=== PATIENT | female | born 1965 | race Caucasian/White ===

== ENCOUNTER 2023-01-18 11:53 | Emergency (ER) | payer BC, SELFPAY ==
[2023-01-18 12:02] VITALS: BP 140/82; PULSE 100; RESP 16; TEMP 37.5; O2SAT 98
--- NOTE | 2023-01-18 12:14 | ED.URI ---
HPI - URI/Sore Throat General Chief Complaint: Upper Respiratory Infection Stated Complaint: SORE THROAT Time Seen by Provider: 01/18/23 12:14 Source: patient, RN notes reviewed and old records reviewed Mode of arrival: ambulatory Limitations: no limitations History of Present Illness HPI Narrative: 57 year old [facility] complaints of sore throat since yesterday morning. Patient reports that she has had temperature around 100F, some headache, and body aches, no cough or sinus congestion. Patient reports that she has taken some Ibuprofen for her discomfort and fever, rates her throat pain as 9/10 with painful swallowing. 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 MD elicited complaint: sore throat Onset (ago): day(s) (1) Pain scale (0-10): 9 Able to tolerate fluids by mouth: Yes Exacerbating factors: swallowing Treatments prior to arrival: ibuprofen Related Data Home Medications Medication Instructions Recorded Confirmed multivitamin 1 tablet PO DAILY 05/11/21 01/18/23 Allergies Allergy/AdvReac Type Severity Reaction Status Date / Time IVP DYE CONTRAST Allergy Mild RED AND Uncoded 01/18/23 12:03 ITCHY Review of Systems Review of Systems: CONSTITUTIONAL: Reports malaise, chills, sweats, or fever. EYES: Denies visual changes, redness, or discharge. ENT: Reports no rhinorrhea, congestion,or sinus pain,no otalgia, positive sore throat. CARDIOVASCULAR: Denies chest pain, palpitations, or edema. RESPIRATORY: Reports no cough.? Denies dyspnea. GASTROINTESTINAL: Denies abdominal pain, nausea, vomiting, diarrhea SKIN: Denies rash or itching. MUSCULOSKELETAL: Reports myalgia. NEUROLOGIC: Reports headache. All systems reviewed & are unremarkable except as noted in HPI and below PMFSH Past Medical History Medical History Breast cancer Deep vein thrombosis (DVT) of right upper extremity Surgical History Surgical History History of bilateral mastectomy with abdominal flap History of breast implant Family History Family History Sibling Carcinoma of colon, Onset Age: 54 Father Hypertension Colon polyp Mother , age 69, ovarian cancer Hypertension Carcinoma of colon Ovarian cancer Sibling Meningioma, Onset Age: 49 Social History Social History Smoking status: Never smoker Alcohol intake: current Comments At time of signature, agree with nursing past medical, surgical, social and family history. There is no relevant family history pertinent to the presenting complaint Exam Narrative: GENERAL: Well-appearing, well-nourished, and in no acute distress. HEAD: Normocephalic EYES: PERRLA, conjunctivae clear ENT: Nares clear, turbinates edematous and erythematous, clear discharge. Mucous membranes moist. TM pearly butler with dull light reflex bilaterally; no tragal tenderness. Oropharynx erythematous without lesions. Tonsils red enlarged and without exudate, no drooling, no hoarseness, no trismus, uvula midline red with some swelling. NECK: Supple. lymphadenopathy CHEST: Clear to auscultation, breath sounds equal. No wheezing, rhonchi, rales, or stridor. No respiratory distress, speaks in full sentences.SAO2 98% on room air HEART: Regular rate and rhythm. No murmur heard. SKIN: Warm, dry, no rash. NEURO: Alert and oriented x3. PSYCH: Normal mood and affect Course Course Emergency Course: Patient is aware of diagnosis, understands and agrees to treatment plan.? Anticipatory guidance given.? Patient agrees to follow-up as directed and is aware of reasons to seek care at the emergency department. Portions of this record may have been created with voice recognition software Level of Care: Serfain Lee
== END 2023-01-18 12:40 | disposition home or self-care (01) ==
PROVIDERS: Emergency Provider Registered Nurse; PCP Family Medicine
DX: J02.0 Streptococcal pharyngitis (principal); Z85.3 Personal history of malignant neoplasm of breast; Z86.718 Personal history of other venous thrombosis and embolism
CPT/HCPCS: 87880; 99213; G0463

== ENCOUNTER 2023-11-04 00:22 | Day surgery (SDC) | payer BC, SELFPAY ==
[2023-10-23 09:21] VITALS: BMI 28.8
--- NOTE | 2023-11-01 09:22 | SUR.PREOP ---
Patient called regarding upcoming procedure. Message left on patient's voicemail regarding preop instructions, appointment times, and procedure prep.
--- NOTE | 2023-11-01 14:53 | PM.HPGS ---
History of Present Illness History of Present Illness Consent: Risks, benefits, and alternatives have been discussed and questions answered. Patient agrees to proceed with procedure. Chief complaint: fam hx of colon ca Narrative: Linda Jeronimo is a 57 year old female Referred for colon cancer screening. Her mother had colon cancer. Review of Systems Review of Systems: All systems reviewed & are unremarkable except as noted in HPI and below PMFSH Past Medical History Medical History Breast cancer Deep vein thrombosis (DVT) of right upper extremity Surgical History Surgical History History of bilateral mastectomy with abdominal flap History of breast implant Family History Family History Sibling Carcinoma of colon, Onset Age: 54 Father Hypertension Colon polyp Mother , age 69, ovarian cancer Hypertension Carcinoma of colon Ovarian cancer Sibling Meningioma, Onset Age: 49 Social History Social History Smoking status: Never smoker Alcohol intake: current Substance use type: does not use Lack of Transportation: YES Lack of Food: Sometimes True Current Housing: I Have Housing Concerned About Future Housing: No Difficulty Paying Gas/Electric Bills: No Difficulty Paying for Meds: No Currently Unemployed: No Education: Bachelor's Degree Difficulty w/ Childcare or Family Care: No Living arrangements: other Additional living arrangements comments: with sp Meds Home Medications and Allergies Home Medications Medication Instructions Recorded Confirmed Type multivitamin 1 tablet PO DAILY 05/11/21 11/04/23 History Allergies Allergy/AdvReac Type Severity Reaction Status Date / Time cyclobenzaprine Allergy Unknown Verified 11/04/23 09:44 [From Flexeril] IVP DYE CONTRAST Allergy Mild RED AND Uncoded 11/04/23 09:44 ITCHY Exam Const: General: alert Orientation/consciousness: patient oriented x3 Resp: Auscultation: clear to auscultation bilaterally Cardio: Rhythm: regular rhythm GI: GI Palp: Yes Soft to palpation and No Tenderness to palpation present (GI) Neuro: General: patient oriented x3 Assessment and Plan Assessment and plan (1) Family history of malignant neoplasm of digestive organs: Code(s): Z80.0 - Family history of malignant neoplasm of digestive organs Status: Acute Assessment and Plan: Colonoscopy with possible biopsy or polypectomy or cautery or injection of substances.
[2023-11-04 09:35] VITALS: BP 148/85; PULSE 75; RESP 18; TEMP 36.2; O2SAT 99; BMI 28.7
[2023-11-04] MEDS: LACTATED RINGERS 1,000 ML 150 ML IV CONT (09:52)
--- NOTE | 2023-11-04 10:34 | P.PNAN_ITS ---
Anes - Initial Pre Proc Eval Procedure: Operation Date: 11/04/23 11:00 Proposed Procedures p Colonoscopy - Constantin Couch MD Date/Time: 11/04/23 10:34 Surgeon: Constantin Couch MD Pre Op Diagnosis: fam hx of colon ca Patient Data Age: 57 Gender: F Height: 1.78 m Weight: 90.9 kg Last Vital Signs Temp 97.2 F L 11/04/23 09:35 Pulse 75 11/04/23 09:35 Resp 18 11/04/23 09:35 BP 148/85 H 11/04/23 09:35 Pulse Ox 99 11/04/23 09:35 O2 Del Method Room Air 11/04/23 09:35 Allergies Allergy/AdvReac Type Severity Reaction Status Date / Time cyclobenzaprine Allergy Unknown Verified 11/04/23 09:44 [From Flexeril] IVP DYE CONTRAST Allergy Mild RED AND Uncoded 11/04/23 09:44 ITCHY Home Medications Medication Instructions Recorded Confirmed Type multivitamin 1 tablet PO DAILY 05/11/21 11/04/23 History Patient hx anesthesia problems: none Family hx anesthesia problems: none Results Review: All pre-operative results and documents have been reviewed as part of the pre- operative evaluation. [facility] Past Medical History Medical History Breast cancer Deep vein thrombosis (DVT) of right upper extremity Surgical History Surgical History History of bilateral mastectomy with abdominal flap History of breast implant Family History Family History Sibling Carcinoma of colon, Onset Age: 54 Father Hypertension Colon polyp Mother , age 69, ovarian cancer Hypertension Carcinoma of colon Ovarian cancer Sibling Meningioma, Onset Age: 49 Social History Social History Smoking status: Never smoker Alcohol intake: current Substance use type: does not use Lack of Transportation: YES Lack of Food: Sometimes True Current Housing: I Have Housing Concerned About Future Housing: No Difficulty Paying Gas/Electric Bills: No Difficulty Paying for Meds: No Currently Unemployed: No Education: Bachelor's Degree Difficulty w/ Childcare or Family Care: No Living arrangements: other Additional living arrangements comments: with gianna Chacon Final PreProcedure Day of Procedure 11/04/23 10:34 Patient weight: normal Heart: regular rate and rhythm Lungs: clear to auscultation Airway: Mallampati scale class II Neurological: alert and oriented Last oral intake: >/= 8 hours ASA classification: III Emergent: no Anesthetic plan: proceed Anesthesia type and monitoring: general GIVS and standard monitoring Results Review: All pre-operative results and documents have been reviewed as part of the pre- operative evaluation. Informed Consent: The patient's anesthetic plan and its attendant risks and benefits were discussed with the patient/family/POA. Questions were solicited and answers prov ided to the satisfaction of the patient/family/POA.
[2023-11-04 11:06] VITALS: BP 131/70; PULSE 66; RESP 25; O2SAT 98
[2023-11-04 11:16] VITALS: BP 138/82; PULSE 61; RESP 18; O2SAT 100
[2023-11-04 11:26] VITALS: BP 147/93; PULSE 69; RESP 20; O2SAT 100
== END 2023-11-04 11:36 | disposition home or self-care (01) ==
PROVIDERS: PCP Family Medicine; Visit Provider Internal Medicine Gastroenterology
PROC: 0DJD8ZZ Inspection of Lower Intestinal Tract, Via Natural or Artificial Opening Endoscopic (ICD-10-PCS; CPT 45378; principal; 2023-11-04 11:00)
DX: Z12.11 Encounter for screening for malignant neoplasm of colon (principal); D12.4 Benign neoplasm of descending colon; Z80.0 Family history of malignant neoplasm of digestive organs; Z85.3 Personal history of malignant neoplasm of breast; Z86.718 Personal history of other venous thrombosis and embolism
CPT/HCPCS: 45385; 88305; J2704; J7120